=== PATIENT | male | born 1955 | race Caucasian/White ===

== ENCOUNTER → 2017-06-16 | Outpatient (CLI) | payer BC ==
--- NOTE | 2017-06-16 07:57 | US ---
EXAMINATION TYPE: US abdomen complete DATE OF EXAM: 06/16/2017 COMPARISON: NONE CLINICAL HISTORY: S39.011D strained muscle. EXAM MEASUREMENTS: Liver Length: 16.7 cm Gallbladder Wall: 0.3 cm CBD: 0.4 cm Spleen: 9.8 cm Right Kidney: 11.8 x 5.4 x 5.8 cm Left Kidney: 11.8 x 5.0 x 5.4 cm patient broke ribs about 5 weeks ago, is still very tender over this area. Pancreas: not visualized due to midline bowel gas Liver: wnl Gallbladder: No stones seen Evidence for sonographic Downs's sign: patient is very tender over gallbladder area but this is d ue to broken ribs. CBD: wnl Spleen: wnl Right Kidney: No hydronephrosis or masses seen Left Kidney: No hydronephrosis or masses seen Upper IVC: wnl Abd Aorta: wnl scanned superficially over area of pain, no definite abnormality noted. The liver is homogenous. The intrahepatic portion of the IVC and proximal abdominal aorta are within normal limits. There is no evidence of cholelithiasis. Common bile duct is unremarkable. The visu alized portions of the pancreas are homogenous. The spleen is unremarkable. Kidneys are symmetric a nd free of hydronephrosis. No renal lesions are seen. IMPRESSION: No significant abnormality identified at this time.
== END | disposition home or self-care (01) ==
LOC: RADUSWWP 06:52
PROVIDERS: ATTEND Family Medicine
DX: S39.011D Strain of muscle, fascia and tendon of abdomen, subsequent encounter (principal)
CPT/HCPCS: 76700

== ENCOUNTER → 2018-09-29 | Outpatient (CLI) | payer BC ==
--- NOTE | 2018-09-30 20:26 | CTL ---
EXAMINATION TYPE: CT Low Dose Lung DATE OF EXAM ORDERED: 09/29/2018 HISTORY: Long-term tobacco use. Lung cancer screening CT DLP: 115.[address] CTDI: 2.7 mGy Automated exposure control for dose reduction was used. SCREENING VISIT: Second study COMPARISON: Lung CT April 27, 2016 TECHNIQUE: Low dose computed tomography scan was performed through the chest at 1 mm thick sections a nd reconstructed images in the coronal plane at [address] DIAGNOSTIC QUALITY: Satisfactory FINDINGS: LUNG NODULES: None. No nodules greater than 4 mm. Incidental micronodule or 3 mm nodule in the lingul a on axial image 182 was present on prior image 36 series 3 is postinflammatory. LUNGS: COPD: Severity: Mild to moderate Fibrosis: Severity: None Lymph nodes: No greater than 1 cm noncalcified. Other findings: Redemonstration of calcified right hilar and subcarinal subcentimeter lymph nodes. BILATERAL PLEURAL SPACE: Effusion: None Calcification: None Thickening: Tiny focal thickening posterior lateral right lung apex is stable. Pneumothorax: None HEART: Heart Size: Normal Coronary calcification: Moderate redemonstrated Pericardial effusion: None OTHER FINDINGS: Upper abdomen: None Bony thorax: Mild multilevel spurring. Supraclavicular region: None Other: None IMPRESSION: No suspicious new or enlarging nodules. FOLLOW UP CT CHEST RECOMMENDATION: Annual low-dose lung screening CT CT LUNG RAD: Lung-Rad 2 Benign Appearance or Behavior
== END | disposition home or self-care (01) ==
LOC: RADCTMAIN 16:08
PROVIDERS: ATTEND Family Medicine
DX: Z12.2 Encounter for screening for malignant neoplasm of respiratory organs (principal); F17.210 Nicotine dependence, cigarettes, uncomplicated

== ENCOUNTER → 2019-01-29 | Outpatient (CLI) | payer BC ==
--- NOTE | 2019-01-29 12:09 | ECHOS ---
STRESS ECHOCARDIOGRAM INDICATIONS: Shortness of breath. MEDICATIONS: None. BASELINE HEART RATE: 64 BASELINE BLOOD PRESSURE: 152/91 MAXIMUM HEART RATE: 142 MAXIMUM BLOOD PRESSURE: 212/81 85% MPHR: 133 100% MPHR: 156 METS: 10.8 MAXIMUM STAGE REACHED: 142 TOTAL EXERCISE TIME: 9:30 CLINICAL INFORMATION: Baseline rhythm is sinus mechanism, rate of 64, left axis deviation, minor nonspecific ST-T wave changes. Baseline blood pressure 152/91 mmHg. Patient exercised on Sandor protocol for 9 minutes 30 seconds reaching a peak rate 142 beats per minute which is equal to 91% maximum predicted heart rate. Peak blood pressure 212/81 mmHg. Test was terminated secondary to fatigue. There were no chest pain. Electrocardiographic monitoring revealed no evidence of diagnostic ischemic ST deviation. FINDINGS: Baseline echocardiogram revealed normal wall thickening and motion. At peak exercise there was normal wall motion augmentation with no hypokinesis or dyskinesis. CONCLUSION: 1. Good exercise tolerance with normal electrocardiograph response to exercise. 2. Normal stress echocardiogram with no evidence of stress-induced ischemia. MMODL / IJN: [id number] /
== END | disposition home or self-care (01) ==
LOC: RADNMMAIN 09:54
PROVIDERS: ATTEND Family Medicine
DX: R06.00 Dyspnea, unspecified (principal)
CPT/HCPCS: 93351

== ENCOUNTER 2023-09-13 15:41 | Emergency (ER) | payer BC, MEDICARE ==
[2023-09-13] MEDS ORDERED: RX INFO: IV CONTRAST WAS GIVEN 1 EACH MISC MISCELLANE PRN (16:04)
--- NOTE | 2023-09-13 16:42 | ED ---
Extremity Problem HPI - General Source: patient, RN notes reviewed Mode of arrival: ambulatory Limitations: no limitations <Afsaneh King - Last Filed: 09/13/23 16:40> - General Source: RN notes reviewed <Geovanna Rowell - Last Filed: 09/13/23 23:06> - General Chief complaint: Extremity Problem,Nontraumatic Stated complaint: Needs CAT scan of L foot Time Seen by Provider: 09/13/23 15:58 - History of Present Illness Initial comments: Alexandr aparicio is a 68-year-old male with a history of tobacco abuse smoking 2 packs a day and atherosclerosis presents emergency department chief complaint of discoloration of his left third fourth and fifth digits that he noticed last night. He states that he experienced moderate to severe pain that awoke him fr om sleep due to this. Denies history of heart attack or stroke. Denies previous surgery to left foot or known trauma or injury to the affected toes. (Afsaneh King) 8-year-old male with history of heavy tobacco use and atherosclerosis presenting to the ER with chief complaint of discoloration to his left third, fourth, and fifth digits of left lower extremity. States he noticed this last night when he began to experience pain while he was sleeping in bed. He reports that his toes are purple and painful. He was sent today by his PCP for concern for ischemia. (Geovanna Rowell) - Related Data Home Medications Medication Instructions Recorded Confirmed No Known Home Medications 09/13/23 09/13/23 Allergies Allergy/AdvReac Type Severity Reaction Status Date / Time ketorolac [From Toradol] Allergy Rash/Hives Verified 09/13/23 19:58 Review of Systems ROS Other: All systems not noted in ROS Statement are negative. <Afsaneh King - Last Filed: 09/13/23 16:40> ROS Other: All systems not noted in ROS Statement are negative. <Geovanna Rowell - Last Filed: 09/13/23 23:06> ROS Statement: Those systems with pertinent positive or pertinent negative responses have been documented in the HPI. Past Medical History Past Medical History: Hyperlipidemia Past Surgical History: No Surgical Hx Reported Smoking Status: Current every day smoker Past Alcohol Use History: Daily Past Drug Use History: None Reported <Afsaneh King - Last Filed: 09/13/23 16:40> General Exam Limitations: no limitations <Afsaneh King - Last Filed: 09/13/23 16:40> General appearance: alert, in no apparent distress Respiratory exam: Present: normal lung sounds bilaterally. Absent: respiratory distress, wheezes, rales, rhonchi, stridor Cardiovascular Exam: Present: regular rate, normal rhythm, normal heart sounds. Absent: systolic murmur, diastolic murmur, rubs, gallop, clicks Left Lower Leg exam: Present: normal inspection, full ROM. Absent: tenderness, swelling Ankle exam: Present: normal inspection, full ROM. Absent: tenderness, swelling Foot/Toe exam: Present: full ROM, tenderness. Absent: normal inspection (Distal aspect of left third, fourth, and fifth digit of lower extremity are purple in color with mild tenderness to palpation. Cap refill less than 2 seconds, dorsalis pedis pulses present bilaterally. Full sensation and range of motion of digits.), swelling, laceration Neurovascular tendon exam: Present: no vascular compromise. Absent: pulse deficit, abnormal cap refill, sensory deficit <Geovanna Rowell - Last Filed: 09/13/23 23:06> - General Exam Comments Initial Comments: Visual Physical Exam Vital signs reviewed General: Well-appearing, nontoxic, no acute distress. Head: Normocephalic, atraumatic Eyes: PERRLA, EOMI ENT: Airway patent Chest: Nonlabored breathing Skin: No visual rash, normal skin tone Neuro: Alert and oriented 3 Musculoskeletal: No gross abnormalities (Afsaneh King) Course Vital Signs 09/13/23 15:48 Temperature 97.4 F L Pulse Rate 73 Respiratory 20 Rate Blood Pressure 173/86 O2 Sat by Pulse 96 Oximetry Medical Decision Making <Afsaneh King - Last Filed: 09/13/23 16:40> - Lab Data Result diagrams: 09/13/23 16:19 09/13/23 16:19 <Geovanna Rowell - Last Filed: 09/13/23 23:06> - Medical Decision Making I completed the quick note portion of this chart signed Afsaneh King PA-C (Afsaneh King) Was pt. sent in by a medical professional or institution (MICHELLE Santos, [employer] OPERATOR HELPER, urgent care, hospital, or correction...) When possible be specific @ -[No] Did you speak to anyone other than the patient for history (EMS, parent, family, police, friend...)? What history was obtained from this source @ -Patient's supplemented history Did you review nursing and triage notes (agree or disagree)? Why? @ -[I reviewed and agree with nursing and triage notes] Were old charts reviewed (outside hosp., previous admission, EMS record, old EKG, old radiological studies, urgent care reports/EKG's, correction records)? Report findings @ -[No old charts were reviewed] Differential Diagnosis (chest pain, altered mental status, abdominal pain women, abdominal pain men, vaginal bleeding, weakness, fever, dyspnea, syncope, headache, dizziness, GI bleed, back pain, seizure, CVA, palpatations, mental health, musculoskeletal)? @ -Differential Musculoskeletal Acute ischemia of limb, PAD, Mcgarry, gout, muscular strain, contusion, ligament sprain, fracture, arthritis, septic arthritis, bursitis, cellulitis, mu scle spasm, nerve compression, DVT, arterial occlusion, herpes zoster, electrolyte abnormality, tumor.... This is not meant to be in all inclusive list EKG interpreted by me (3pts min.). @ -None X-rays interpreted by me (1pt min.). @ -[None done] CT interpreted by me (1pt min.). @ -CT angio of left lower extremity revealed peroneal artery is diminutive and seen to just above ankle U/S interpreted by me (1pt. min.). @ -[None done] What testing was considered but not performed or refused? (CT, X-rays, U/S, labs)? Why? @ -[None] What meds were considered but not given or refused? Why? @ -[None] Did you discuss the management of the patient with other professionals (professionals i.e. DrErendira, PA, [employer] OPERATOR HELPER, lab, RT, psych nurse, outreach and education social worker, grants administrator, teacher, chief analytics officer, renal case manager)? Give summary @ -Case discussed with Dr. Downing's team and Dr. Darby from [facility] who accepted admission to medicine with vascular consult due to acute limb ischemia. Was smoking cessation discussed for >3mins.? @ -[No] Was critical care preformed (if so, how long)? @ -[No] Were there social determinants of health that impacted care today? How? (Homelessness, low income, unemployed, alcoholism, drug addiction, transportation, low edu. Level, literacy, decrease access to med. care, retirement, rehab)? @ -[No] Was there de-escalation of care discussed even if they declined (Discuss DNR or withdrawal of care, Hospice)? DNR status @ -[No] What co-morbidities impacted this encounter? (DM, HTN, Smoking, COPD, CAD, Cancer, CVA, ARF, Chemo, Hep., AIDS, mental health diagnosis, sleep apnea, morbid obesity)? @ -Tobacco smoking Was patient admitted / discharged? Hospital course, mention meds given and route , prescriptions, significant lab abnormalities, going to OR and other pertinent info. @ -Patient left AGAINST MEDICAL ADVICE. Patient was seen and evaluated for discoloration of 3rd, 4th, and 5th digits of left lower extremity x 1 day. pt is current tobacco smoker (2 packs daily). PE reveals purple discoloration and tenderness of distal aspect of left 3rd, 4th, and 5th digits. sensation and pulses intact. CT revealed peroneal artery is diminutive and seen to just above ankle. Lab work unremarkable. Case discussed with resident on Dr. Downing's team (vascular) and Dr. Darby from [facility]. Dr. Darby accepted admission with vascular consult to Dr. Downing. Patient decided to leave AGAINST MEDICAL ADVICE before admission orders were placed. Risks discussed in detail with patient of leaving AMA and patient shows understanding and chooses to leave AMA. Case discussed with Dr. Canchola Undiagnosed new problem with uncertain prognosis? @ -[No] Drug Therapy requiring intensive monitoring for toxicity (Heparin, Nitro, Insulin, Cardizem)? @ -[No] Were any procedures done? @ -[No] Diagnosis/symptom? @ -Acute left foot ischemia, peripheral artery disease Acute, or Chronic, or Acute on Chronic? @ -Acute Uncomplicated (without systemic symptoms) or Complicated (systemic symptoms)? @ -Uncomplicated Side effects of treatment? @ -[No] Exacerbation, Progression, or Severe Exacerbation? @ -[No] Poses a threat to life or bodily function? How? (Chest pain, [place], NH, pneumonia, PE, COPD, DKA, ARF, appy, cholecystitis, CVA, Diverticulitis, Homicidal, Suicidal, threat to staff... and all critical care pts) @ -Yes, ischemia to limb (Geovanna Rowell) - Lab Data Lab Results 09/13/23 09/13/23 09/13/23 Range/Units 16:19 16:19 16:19 WBC 7.9 (3.8-10.6) k/uL RBC 5.06 (4.30-5.90) m/uL Hgb 16.5 (13.0-17.5) gm/dL Hct 49.5 (39.0-53.0) % MCV 97.9 (80.0-100.0) fL MCH 32.7 (25.0-35.0) pg MCHC 33.4 (31.0-37.0) g/dL RDW 13.2 (11.5-15.5) % Plt Count 199 (150-450) k/uL MPV 7.8 Neutrophils % 63 % Lymphocytes % 23 % Monocytes % 6 % Eosinophils % 4 % Basophils % 2 % Neutrophils # 5.0 (1.3-7.7) k/uL Lymphocytes # 1.8 (1.0-4.8) k/uL Monocytes # 0.5 (0-1.0) k/uL Eosinophils # 0.3 (0-0.7) k/uL Basophils # 0.1 (0-0.2) k/uL PT 9.4 L (10.0-12.5) sec INR 0.8 (<1.2) APTT 20.7 L (22.0-30.0) sec Sodium 137 (137-145) mmol/L Potassium 5.2 H (3.5-5.1) mmol/L Chloride 107 (98-107) mmol/L Carbon Dioxide 25 (22-30) mmol/L Anion Gap 5 mmol/L BUN 19 (9-20) mg/dL Creatinine 0.97 (0.66-1.25) mg/dL Est GFR (CKD-EPI)AfAm >90 (>60 ml/min/1.73 sqM) Est GFR (CKD-EPI)NonAf 80 (>60 ml/min/1.73 sqM) Glucose 90 (74-99) mg/dL Plasma Lactic Acid Jovon (0.7-2.0) mmol/L Calcium 9.3 (8.4-10.2) mg/dL Total Bilirubin 0.6 (0.2-1.3) mg/dL AST 25 (17-59) U/L ALT 24 (4-49) U/L Alkaline Phosphatase 80 (38-126) U/L Total Protein 7.5 (6.3-8.2) g/dL Albumin 4.3 (3.5-5.0) g/dL 09/13/23 Range/Units 16:19 WBC (3.8-10.6) k/uL RBC (4.30-5.90) m/uL Hgb (13.0-17.5) gm/dL Hct (39.0-53.0) % MCV (80.0-100.0) fL MCH (25.0-35.0) pg MCHC (31.0-37.0) g/dL RDW (11.5-15.5) % Plt Count (150-450) k/uL MPV Neutrophils % % Lymphocytes % % Monocytes % % Eosinophils % % Basophils % % Neutrophils # (1.3-7.7) k/uL Lymphocytes # (1.0-4.8) k/uL Monocytes # (0-1.0) k/uL Eosinophils # (0-0.7) k/uL Basophils # (0-0.2) k/uL PT (10.0-12.5) sec INR (<1.2) APTT (22.0-30.0) sec Sodium (137-145) mmol/L Potassium (3.5-5.1) mmol/L Chloride (98-107) mmol/L Carbon Dioxide (22-30) mmol/L Anion Gap mmol/L BUN (9-20) mg/dL Creatinine (0.66-1.25) mg/dL Est GFR (CKD-EPI)AfAm (>60 ml/min/1.73 sqM) Est GFR (CKD-EPI)NonAf (>60 ml/min/1.73 sqM) Glucose (74-99) mg/dL Plasma Lactic Acid Jovon 1.0 (0.7-2.0) mmol/L Calcium (8.4-10.2) mg/dL Total Bilirubin (0.2-1.3) mg/dL AST (17-59) U/L ALT (4-49) U/L Alkaline Phosphatase (38-126) U/L Total Protein (6.3-8.2) g/dL Albumin (3.5-5.0) g/dL Disposition <Afsaneh King - Last Filed: 09/13/23 16:40> Time of Disposition: 19:54 <Geovanna Rowell - Last Filed: 09/13/23 23:06> Clinical Impression: Ischemic pain of left foot Disposition: LEFT AGAINST MEDICAL ADVICE Condition: Serious Referrals: Chris Brewer MD [Primary Care Provider] - 1-2 days
[2023-09-13 16:43] LABS: ALT 24 U/L (4-49); AST 25 U/L (17-59); African American GFR (CKD) >90 (>60 ml/min/1.73 sqM); Albumin 4.3 g/dL (3.5-5.0); Alkaline Phosphatase 80 U/L (38-126); Anion Gap 5 mmol/L; Blood Urea Nitrogen 19 mg/dL (9-20); Calcium 9.3 mg/dL (8.4-10.2); Carbon Dioxide 25 mmol/L (22-30); Chloride 107 mmol/L (98-107); Glucose 90 mg/dL (74-99); Non-African American GFR(CKD) 80 (>60 ml/min/1.73 sqM); Potassium 5.2 mmol/L (3.5-5.1); Sodium 137 mmol/L (137-145); Total Bilirubin 0.6 mg/dL (0.2-1.3); Total Protein 7.5 g/dL (6.3-8.2)
[2023-09-13 16:50] LABS: Basophils # (A) 0.1 k/uL (0-0.2); Basophils % (A) 2 %; Eosinophils # (A) 0.3 k/uL (0-0.7); Eosinophils % (A) 4 %; HCT 49.5 % (39.0-53.0); HGB 16.5 gm/dL (13.0-17.5); Lymphocytes # (A) 1.8 k/uL (1.0-4.8); Lymphocytes % (A) 23 %; MCH 32.7 pg (25.0-35.0); MCHC 33.4 g/dL (31.0-37.0); MCV 97.9 fL (80.0-100.0); Mean Platelet Volume 7.8; Monocytes # (A) 0.5 k/uL (0-1.0); Monocytes % (A) 6 %; Neutrophils % (A) 63 %; Platelet Count 199 k/uL (150-450); RBC 5.06 m/uL (4.30-5.90); RDW 13.2 % (11.5-15.5); WBC 7.9 k/uL (3.8-10.6)
[2023-09-13 16:54] LABS: INR 0.8 (<1.2); Prothrombin Time 9.4 sec (10.0-12.5)
[2023-09-13 17:00] LABS: Partial Thromboplastin Time 20.7 sec (22.0-30.0)
[2023-09-13 18:14] VITALS: BP 173/86; PULSE 73; RESP 20; TEMP 97.4
--- NOTE | 2023-09-13 18:30 | CT ---
EXAMINATION TYPE: CT angio lower extremity LT DATE OF EXAM: 09/13/2023 COMPARISON: None HISTORY: 68-year-old male with pain and discoloration of left toes TECHNIQUE: CT of the left lower extremity with IV Contrast, patient injected with 100 mL of Isovue 37 0. Scanning was performed from the mid calf through the toes. Coronal/sagittal reconstructions perfor med. 3-D reconstructions generated on a dedicated workstation. CT DLP: 184.7 mGycm Automated exposure control for dose reduction was used. FINDINGS: At the mid leg level, there is visualization of both the anterior and posterior tibial arteries. Susanna merry artery is somewhat diminished and is seen to just above the ankle. There is satisfactory two-ves arpit runoff noted. Generalized muscle atrophy involving the soleus. Os peroneum. Osteopenia. Ankle articulation grossly intact. Smooth delineation to the Achilles tendon. Subtalar joint is align ed. IMPRESSION: SCANNING FROM THE MID CALF DOWN THROUGH THE TOES. TWO-VESSEL RUNOFF VIA THE ANTERIOR AND POSTERIOR TI BIAL ARTERIES. THE PERONEAL ARTERY IS DIMINUTIVE AND SEEN TO JUST ABOVE THE ANKLE.
== END 2023-09-13 20:16 | disposition left against medical advice (07) ==
LOC: EC 15:41
DX: M79.672 Pain in left foot (principal); F17.200 Nicotine dependence, unspecified, uncomplicated; Z88.6 Allergy status to analgesic agent; Z53.29 Procedure and treatment not carried out because of patient's decision for other reasons
CPT/HCPCS: 36415; 80053; 83605; 85025; 85610; 85730; 73706; 99284; Q9967

== ENCOUNTER 2023-09-14 12:19 | Inpatient (IN) | payer MEDICARE ==
--- NOTE | 2023-09-14 13:05 | ED ---
Extremity Problem HPI - General Chief complaint: Extremity Problem,Nontraumatic Stated complaint: L foot issue Time Seen by Provider: 09/14/23 12:33 Source: patient, RN notes reviewed, old records reviewed Mode of arrival: ambulatory Limitations: no limitations - History of Present Illness Initial comments: This is a 68-year-old male to the ER today. He presents today for evaluation regards to recheck recheck of vascular arterial occlusion of the left lower extremity, patient does have discoloration of toes and severe pain especially when he is sleeping at night. Patient was in the ER yesterday with full evaluation including CT angio of his left lower extremity and was offered admission to the hospital he did have some family matters to take care of went home and presents to the ER again shereen WOODY Complaint: extremity pain, extremity swelling, cold extremity, other (DisColoration of left foot) Location: left, lower extremity, toe Severity scale (1-10): 7 Quality: sharp Consistency: constant Improves with: nothing Worsens with: weight bearing, walking Associated Symptoms: denies other symptoms - Related Data Previous Rx's Medication Instructions Recorded Apixaban [Eliquis] 5 mg PO BID #60 tab 09/15/23 Atorvastatin [Lipitor] 40 mg PO DAILY 90 Days #90 tab 09/15/23 Nicotine 21Mg/24Hr Patch [Habitrol] 1 patch TRANSDERM DAILY 30 Days 09/15/23 #30 patch Allergies Allergy/AdvReac Type Severity Reaction Status Date / Time ketorolac [From Toradol] Allergy Rash/Hives/Increased Verified 09/14/23 14:38 Heart Rate/Anxiety Review of Systems ROS Statement: Those systems with pertinent positive or pertinent negative responses have been documented in the HPI. ROS Other: All systems not noted in ROS Statement are negative. Past Medical History Past Medical History: Hyperlipidemia Past Surgical History: No Surgical Hx Reported Past Psychological History: No Psychological Hx Reported Smoking Status: Current every day smoker Past Alcohol Use History: Daily Past Drug Use History: None Reported General Exam Limitations: no limitations General appearance: alert, in no apparent distress Head exam: Present: atraumatic, normocephalic, normal inspection Eye exam: Present: normal appearance, PERRL, EOMI. Absent: scleral icterus, conjunctival injection, periorbital swelling ENT exam: Present: normal exam, mucous membranes moist Neck exam: Present: normal inspection. Absent: tenderness, meningismus, lymphadenopathy Respiratory exam: Present: normal lung sounds bilaterally. Absent: respiratory distress, wheezes, rales, rhonchi, stridor Cardiovascular Exam: Present: regular rate, normal rhythm, normal heart sounds. Absent: systolic murmur, diastolic murmur, rubs, gallop, clicks GI/Abdominal exam: Present: soft, normal bowel sounds. Absent: distended, te nderness, guarding, rebound, rigid Extremities exam: Present: normal inspection, full ROM, normal capillary refill. Absent: tenderness, pedal edema, joint swelling, calf tenderness Back exam: Present: normal inspection Neurological exam: Present: alert, oriented X3, CN II-XII intact Psychiatric exam: Present: normal affect, normal mood Skin exam: Present: warm, dry, intact, normal color. Absent: rash Course Vital Signs 09/14/23 09/14/23 09/14/23 12:26 16:24 20:30 Temperature 97.9 F 97.8 F Pulse Rate 86 66 83 Respiratory 18 18 18 Rate Blood Pressure 135/80 157/84 122/69 O2 Sat by Pulse 94 L 97 95 Oximetry - Reevaluation(s) Reevaluation #1: 09/14/23 15:34 Medical records reviewed Reevaluation #2: 09/14/23 15:34 Patient symptoms unchanged Reevaluation #3: 09/14/23 15:34 Patient informed of results and questions answered Reevaluation #4: Was pt. sent in by a medical professional or institution (, PA, CHART SNATCHER, urgent care, hospital, or prison...) When possible be specific @ -no Did you speak to anyone other than the patient for history (EMS, parent, family, police, friend...)? What history was obtained from this source @ -no Did you review nursing and triage notes (agree or disagree)? Why? @ -agree Are old charts reviewed (outside hosp., previous admission, EMS record, old EKG, old radiological studies, urgent care reports/EKG's, prison records)? Report findings @ -yes Differential Diagnosis (chest pain, altered mental status, abdominal pain women, abdominal pain men, vaginal bleeding, weakness, fever, dyspnea, syncope, headache, dizziness, GI bleed, back pain, seizure, CVA, palpatations, mental health, musculoskeletal)? @ -prior EKG interpreted by me (3pts min.). @ -yes X-rays interpreted by me (1pt min.). @ -no CT interpreted by me (1pt min.). @ -no U/S interpreted by me (1pt. min.). @ -no What testing was considered but not performed or refused? (CT, X-rays, U/S, labs)? Why? @ -none What meds were considered but not given or refused? Why? @ -none Did you discuss the management of the patient with other professionals (pro fessionals i.e. , PA, CHART SNATCHER, lab, RT, psych nurse, social science research assistant, locator, teacher, labor relations officer, protective services case worker)? Give summary @ -no Was smoking cessation discussed for >3mins.? @ -no Was critical care preformed (if so, how long)? @ -yes31 Were there social determinants of health that impacted care today? How? (Homelessness, low income, unemployed, alcoholism, drug addiction, transportation, low edu. Level, literacy, decrease access to med. care, fci, rehab)? @ -none Was there de-escalation of care discussed even if they declined (Discuss DNR or withdrawal of care, Hospice)? DNR status @ -no What co-morbidities impacted this encounter? (DM, HTN, Smoking, COPD, CAD, Cancer, CVA, ARF, Chemo, Hep., AIDS, mental health diagnosis, sleep apnea, morbid obesity)? @ -none Was patient admitted / discharged? Hospital course, mention meds given and route, prescriptions, significant lab abnormalities, going to OR and other pertinent info. @ - 68 male to be admitted for left lower extremity vascular occlusion, patient has ischemic pain of his foot, was in the hospital for admission just recently and discharged discharge secondary to family emergency, patient presents back for vascular consultation Admitted Undiagnosed new problem with uncertain prognosis? @ -no Drug Therapy requiring intensive monitoring for toxicity (Heparin, Nitro, Insulin, Cardizem)? @ -no Were any procedures done? @ -no Diagnosis/symptom? @ -Ischemic pain of the foot Acute, or Chronic, or Acute on Chronic? @ -Acute Uncomplicated (without systemic symptoms) or Complicated (systemic symptoms)? @ -Complicated Side effects of treatment? @ -no Exacerbation, Progression, or Severe Exacerbation? @ -exacerbation Poses a threat to life or bodily function? How? (Chest pain, USA, ID, pneumonia, PE, COPD, DKA, ARF, appy, cholecystitis, CVA, Diverticulitis, Homicidal, Suicidal, threat to staff... and all critical care pts) @ -yes with significant vascular injury and concern for for loss of limb loss - Consultations Consultation #1: Bayron with luis f who agrees to admit this patient Consultation #2: Popeye Downing who does agree to see this patient Medical Decision Making - Medical Decision Making 68 male to be admitted for left lower extremity vascular occlusion, patient has ischemic pain of his foot, was in the hospital for admission just recently and discharged discharge secondary to family emergency, patient presents back for vascular consultation - Lab Data Result diagrams: 09/15/23 10:47 09/15/23 10:47 - EKG Data -: EKG Interpreted by Me (EKG is sinus 71 NV 205 QRS 120 QTc 421) Critical Care Time Critical Care Time: Yes Total Critical Care Time: 31 Disposition Clinical Impression: Ischemic pain of left foot Disposition: ADMITTED IP TO THIS [facility] Condition: Stable Is patient prescribed a controlled substance at d/c from ED?: No Time of Disposition: 15:30
[2023-09-14] MEDS ORDERED: ONDANSETRON 4 MG/2 ML VIAL IVP PRN (15:31)
[2023-09-14] MEDS ORDERED: MORPHINE SULFATE 4 MG/ML SYRINGE IV PRN (15:31)
[2023-09-14] MEDS ORDERED: HEPARIN SODIUM 1,000 UN/ML (10ML VL) IV PRN ×2 (15:31→17:01)
[2023-09-14] MEDS ORDERED: NALOXONE 0.4 MG/ML 1 ML VIAL IV PRN (15:31)
[2023-09-14 16:06] LABS: Basophils # (A) 0.1 k/uL (0-0.2); Basophils % (A) 2 %; Eosinophils # (A) 0.3 k/uL (0-0.7); Eosinophils % (A) 5 %; HCT 49.3 % (39.0-53.0); HGB 16.1 gm/dL (13.0-17.5); Lymphocytes # (A) 1.9 k/uL (1.0-4.8); Lymphocytes % (A) 27 %; MCH 32.1 pg (25.0-35.0); MCHC 32.7 g/dL (31.0-37.0); MCV 98.4 fL (80.0-100.0); Mean Platelet Volume 7.4; Monocytes # (A) 0.4 k/uL (0-1.0); Monocytes % (A) 6 %; Neutrophils # (A) 4.2 k/uL (1.3-7.7); Neutrophils % (A) 59 %; Platelet Count 197 k/uL (150-450); RBC 5.01 m/uL (4.30-5.90); RDW 12.9 % (11.5-15.5); WBC 7.1 k/uL (3.8-10.6)
[2023-09-14] MEDS: HEPARIN SODIUM 1,000 UN/ML (10ML VL) IV ONE ×2 (16:11→17:24)
[2023-09-14] MEDS: SODIUM CHLORIDE 0.9% 1,000 ML IV STA (16:11)
[2023-09-14] MEDS: HEPARIN SOD,PORK IN 0.45% NACL 25,000 UNIT in 0.45% NACL 1 250ML.BAG IV SCH ×2 (16:13→17:15)
[2023-09-14] MEDS: MORPHINE SULFATE 4 MG/ML SYRINGE IV STA (16:15)
[2023-09-14] MEDS: SODIUM CHLORIDE 0.9% 1,000 ML IV SCH (16:15)
[2023-09-14 16:19] LABS: ALT 27 U/L (4-49); AST 30 U/L (17-59); African American GFR (CKD) >90 (>60 ml/min/1.73 sqM); Albumin 4.6 g/dL (3.5-5.0); Alkaline Phosphatase 85 U/L (38-126); Anion Gap 6 mmol/L; Blood Urea Nitrogen 15 mg/dL (9-20); Calcium 9.4 mg/dL (8.4-10.2); Carbon Dioxide 24 mmol/L (22-30); Chloride 107 mmol/L (98-107); Glucose 100 mg/dL (74-99); Magnesium 2.2 mg/dL (1.6-2.3); Non-African American GFR(CKD) >90 (>60 ml/min/1.73 sqM); Potassium 4.9 mmol/L (3.5-5.1); Sodium 137 mmol/L (137-145); Total Bilirubin 0.7 mg/dL (0.2-1.3); Total Protein 7.8 g/dL (6.3-8.2)
[2023-09-14 16:26] LABS: NT-Pro-B-Type Natriuretic Pept 45 pg/mL
[2023-09-14 16:40] LABS: INR 0.8 (<1.2); Prothrombin Time 9.6 sec (10.0-12.5)
[2023-09-14] MEDS: NICOTINE 21MG/24HR PATCH TRANSDERM SCH (17:14)
[2023-09-14] MEDS ORDERED: HYDROcodone/APAP 5-325MG 1 EACH TAB PO PRN (17:15)
[2023-09-14] MEDS ORDERED: ACETAMINOPHEN TAB 325 MG TAB PO PRN (17:15)
--- NOTE | 2023-09-14 17:20 | P.HPIM ---
History of Present Illness H&P Date: 09/14/23 History of Presenting Illness: Patient is a 68-year-old male with a past medical history of nicotine dependence, hypertension, hyperlipidemia, and reports of a previous cardiac sy ncope/convulsion in 2014. Reports he was previously on antihypertensive medication and statin, but states he stopped taking them and never had them refilled. He presented to the emergency department for discoloration of toes in his left foot. Patient initially presented to the hospital on 09/13/2023 in regards to discoloration of left toes and severe pain awakening him from sleep. He underwent evaluation and a CT angiogram was completed of left lower extremity which revealed the peroneal artery is diminutive and seen to just above the ankle concerning for potential vascular arterial occlusion. Patient was initially to be admitted to the hospital, however had family matters he had to take care of and return to the emergency department today for admission and further evaluation. Patient denies fevers, chills, headache, lightheadedness, dizziness, chest pain, palpitations, shortness of breath, or experiencing any numbness/tingling/weakness in his extremities. Upon returning to the hospital today, patient again underwent evaluation in the ER. CBC and CMP were unremarkable. Blood glucose 100. Troponin negative at less than 0.012 and proBNP of 45. Patient was started on high intensity heparin infusion and being admitted under our services with consultation to vascular surgery. Review of systems: Pertinent positives and negatives as discussed in HPI, a complete review of s ystems was performed and all other systems are negative. Physical exam: Vital signs reviewed and stable. General: Nontoxic, no distress and appears stated age. Derm: Skin warm and dry, normal coloration for ethnicity. Bluish discoloration of toes on left foot, worse on plantar surface of third fourth and fifth toes. Head: Atraumatic, normocephalic and symmetric. Eyes: EOMs intact, no lid lag, and anicteric sclera Mouth: no lip lesions, mucus membranes moist Cardiovascular: regular rate and rhythm with normal S1S2, no murmur, positive posterior tibial pulses bilaterally, and cap refill < 2 seconds. Lungs: Respirations even, regular, and unlabored on room air. Lungs CTA bilaterally, no rhonchi, no rales, no wheezing, and no accessory muscle usage. Abdominal: soft, nontender to palpation, no guarding, no appreciable organomegaly Ext: And sensation intact. No gross muscle atrophy, no edema, no contractures Neuro: Speech clear, face symmetrical and CN II-XII grossly intact with no noted focal neuro deficits Psych: Alert and oriented to person, place, time, and situation. Appropriate and pleasant affect. Assessment and Plan of Care: Blue discoloration of third, fourth, and fifth digits of left foot, rule out blue-toe syndrome vs arterial occlusion Nicotine Dependence Hypertension Hyperlipidemia -Patient started on high intensity heparin infusion at 18 units/kg/h -Consult placed to vascular surgery team and discussed plan of care with vascular surgeon and vascular surgery FOOD AND NUTRITION TEACHER placing order for CTA with runoff. -Patient started on aspirin 81 mg daily and atorvastatin 40 mg daily. -Neurovascular checks every 4 hours -Telemetry monitoring -Lipid profile with a.m. labs -Symptomatic care and pain management. -Recommend smoking cessation, order placed for nicotine patch 21 mg daily. Data and imaging reviewed: As stated above in HPI CODE STATUS: Full code DVT prophylaxis: Heparin Anticipated discharge date: Clinical course to determine Anticipated discharge place: Clinical course to determine Patient was seen independently by Nurse Practitioner. This document was prepared using [employer] dictation software. Please allow for errors in meat press operator while rare they do occur. Michoacano Sands NP rendered care for this patient independently, reviewed the findings and plan as documented in the note above. I did not physically speak with or examine the patient on this date. Past Medical History Past Medical History: Hyperlipidemia Past Surgical History: No Surgical Hx Reported Past Psychological History: No Psychological Hx Reported Smoking Status: Current every day smoker Past Alcohol Use History: Daily Past Drug Use History: None Reported Medications and Allergies Home Medications Medication Instructions Recorded Confirmed Type Apixaban [Eliquis] 5 mg PO BID #60 tab 09/15/23 Rx Atorvastatin [Lipitor] 40 mg PO DAILY 90 Days #90 tab 09/15/23 Rx Nicotine 21Mg/24Hr Patch [Habitrol] 1 patch TRANSDERM DAILY 30 Days 09/15/23 Rx #30 patch Allergies Allergy/AdvReac Type Severity Reaction Status Date / Time ketorolac [From Toradol] Allergy Rash/Hives/Increased Verified 09/14/23 14:38 Heart Rate/Anxiety Physical Exam Vitals: Vital Signs Temp Pulse Resp BP Pulse Ox 09/14/23 12:26 97.9 F 86 18 135/80 94 L Intake and Output 09/14/23 09/14/23 09/14/23 06:59 14:59 22:59 Other: Weight 98.883 kg Results CBC & Chem 7: 09/15/23 10:47 09/15/23 10:47
[2023-09-14] MEDS: ATORVASTATIN 40 MG TAB PO SCH (17:27)
[2023-09-14] MEDS: ASPIRIN 81 MG PO SCH (17:27)
--- NOTE | 2023-09-14 17:36 | P.GSCN ---
History of Present Illness Consult date: 09/14/23 Reason for Consult: Occlusion Requesting physician: Aaron Galdamez History of present illness: This is a pleasant 68-year-old male who had presented to the emergency department initially yesterday with complaints of pain in his toes at rest and having blue toes. He was seen in the emergency department yesterday he had a CTA of the left lower extremity which reported two-vessel runoff via the anterior and posterior tibial arteries. Peroneal artery is diminutive and seen to just above the ankle. Patient was advised to stay in the hospital for vascular consultation however he left AGAINST MEDICAL ADVICE. He returned back today with continued complaints of rest pain in the left toes and discoloration although he states improved. Past medical history is significant for nicotine dependence and hyperlipidemia. Does also appear that patient has admitted in the past to daily alcohol consumption. Patient states that he gets relief of the pain when he is walking. He states last night he was up every couple hours with pain in his toes. He currently denies any shortness of breath, chest pain, abdominal pain, nausea or vomiting. He denies any previous known vascular disease or Buerger's disease. Review of Systems A 14 point review systems was completed all pertinent positives and negatives as stated in the HPI. Past Medical History Past Medical History: Hyperlipidemia Past Surgical History: No Surgical Hx Reported Past Psychological History: No Psychological Hx Reported Smoking Status: Current every day smoker Past Alcohol Use History: Daily Past Drug Use History: None Reported Medications and Allergies Home Medications Medication Instructions Recorded Confirmed Type No Known Home Medications 09/13/23 09/14/23 History Allergies Allergy/AdvReac Type Severity Reaction Status Date / Time ketorolac [From Toradol] Allergy Rash/Hives/Increased Verified 09/14/23 14:38 Heart Rate/Anxiety Surgical - Exam Vital Signs Temp Pulse Resp BP Pulse Ox 97.9 F 86 18 135/80 94 L 09/14/23 12:26 09/14/23 12:26 09/14/23 12:26 09/14/23 12:09/14/23 12:26 General appearance: The patient is alert, oriented, appears in no acute distress. HET: Head is normocephalic and atraumatic. Pupils are equal and reactive. Neck: Supple. Heart: Regular. Lungs: Equal expansion, normal respiratory effort. Abdomen: Soft, nontender, nondistended. Extremities: Normal skin color and turgor. Palpable bilateral femoral, PT and DP pulses. Left foot great toe third fourth and fifth toe with some blue discoloration, with good capillary refill. Tender to touch. Neurological: No focal deficits. Strength and sensation are grossly intact. Results - Labs 09/14/23 15:52 09/14/23 15:52 Assessment and Plan Assessment: 1. Left foot with rest pain 2. Left blue toes, unknown etiology 3. Nicotine dependence 4. Hypertension 5. Hyperlipidemia Plan: 1. CT angiogram chest abdomen pelvis ordered 2. Recommend high intensity heparin infusion 3. Recommend smoking cessation 4. Pain medication as needed 5. Further recommendations forthcoming based on clinical course Thank you for this consultation, we will continue to follow The impression and plan of care has been dictated as directed. Dr. Downing I performed a history and examination of this patient, discussed the same with the dictator. I agree with the dictator's note ,documented as a scribe. Any additional findings or plans will be noted.
--- NOTE | 2023-09-14 21:00 | CT ---
EXAMINATION TYPE: CT angio tho/abd W Run Off CT DLP: 3095.4 mGycm, Automated exposure control for dose reduction was used. DATE OF EXAM: 09/14/2023 8:44 PM COMPARISON: CT angiogram lower extremity 09/13/2023. CLINICAL INDICATION:Male, 68 years old with history of left lower extremity blue toes; PHH, Left lowe r extremity blue toes. TECHNIQUE: Dissection protocol: Multiple axial CT images of the chest, abdomen, and pelvis were obtai martin prior and to the administration of IV contrast. 3-D reformats and maximum intensity projection fo rmat were performed on a separate workstation. Contrast used:100 cc mL of Isovue 370 with IV Contrast, Oral contrast used: FINDINGS: ARTERIAL VASCULATURE: The thoracic aorta is normal in course and caliber. There is no evidence of aor tic dissection, aneurysm or acute aortic injury. Great arch vessels patent and normal in course and c aliber. The abdominal aorta is of normal caliber. Moderate atherosclerotic disease is identified thro ughout its course. The origins of the abdominal aortic branches are patent. There is moderate to severe prescribed disease of the bilateral common iliac vessels, with suspected occlusion of the internal iliac (see arrow), with reconstitution of its branches more distally. There is severe stenosis of the bilateral external iliac vessels secondary to mixed atherosclerotic plaque . The common femoral, superficial, and deep femoral arteries are patent with scattered atheroscleroti c disease. The visualized portions of the popliteal artery as well as tibioperoneal trunk and trifurc ations are patent. PULMONARY ARTERIAL VASCULATURE: Normal caliber. No evidence of filling defect to suggest pulmonary em bolus. VENOUS SYSTEM: Unremarkable. Lungs/pleura: Centrilobular emphysematous changes are identified. Heart: Within normal limits. Mediastinum: No gross evidence of adenopathy. Lower Neck: No significant findings. Abdomen: Liver: Unremarkable. Gallbladder and Bile ducts: Unremarkable. Pancreas: Unremarkable. Spleen: Unremarkable. Adrenal glands: Unremarkable. Kidneys and Ureters: Unremarkable. No hydronephrosis. Bladder: Unremarkable. Reproductive: Unremarkable. Stomach and Bowel: Unremarkable. No evidence of bowel obstruction. Peritoneum: No evidence of pneumoperitoneum, free fluid, or adenopathy. Musculoskeletal: Mild multilevel degenerative changes of the thoracolumbar spine.. Lymph nodes: No evidence of lymphadenopathy. Abdominal wall/soft tissues: Unremarkable. IMPRESSION: 1. Normal appearance of the thoracic aorta. 2. Moderate atherosclerotic disease of the abdominal aorta with patent great vessels. 3. Atherosclerotic disease creating multifocal moderate to severe stenoses of the bilateral common il iac vessels. 4. 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 5. Scattered atherosclerotic disease with mild to moderate stenosis of the superficial femoral arteri es without occlusion. 6. Emphysematous changes of the lungs.
[2023-09-15 08:22] VITALS: RESP 18; TEMP 97.7
[2023-09-15] MEDS: PANTOPRAZOLE 40 MG/10 ML VIAL IVP SCH (08:27)
[2023-09-15] MEDS: APIXABAN 5 MG TAB PO SCH (11:18)
--- NOTE | 2023-09-15 11:25 | P.DS ---
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 Recommend smoking cessation, order placed for nicotine patch 21 mg daily. Hospital Course: Patient is a 68-year-old male with a past medical history of nicotine dependence, hypertension, hyperlipidemia, and reports of a previous cardiac syncope/convulsion in 2014. Reports he was previously on antihypertensive medication and statin, but states he stopped taking them and never had them refilled. He presented to the emergency department for discoloration of toes in his left foot. Patient initially presented to the hospital on 09/13/2023 in regards to discoloration of left toes and severe pain awakening him from sleep. He underwent evaluation and a CT angiogram was completed of left lower extremity which revealed the peroneal artery is diminutive and seen to just above the ankle concerning for potential vascular arterial occlusion. Patient was initially to be admitted to the hospital, however had family matters he had to take care of and returned to the emergency department 09/14/23 for admission and further evaluation. Upon returning to the hospital today, patient again under went evaluation in the ER. CBC and CMP were unremarkable. Blood glucose 100. Troponin negative at less than 0.012 and proBNP of 45. Patient was started on high intensity heparin infusion and being admitted under our services with consultation to vascular surgery. CTA with runoff showing occlusion of the proximal left internal iliac vessel, atherosclerotic disease creating multifocal moderate to severe stenosis of the bilateral common iliac vessels, scattered atherosclerotic disease with mild to moderate stenosis of the superficial femoral arteries without occlusion, and moderate atherosclerotic disease of the abdominal aorta with patent great vessels.Vascular Surgeon went to bedside and discussed options with patient regarding moving forward with angiogram and potential stenting versus continuing with medical therapy including full anticoagulation and close follow-up in their office. Patient declining surgical intervention at this time, feels that he has had improvement with antic oagulation. Vascular surgery team sent prescription for Eliquis and recommending patient be discharged home on Eliquis and follow-up in their office in 1 week. Medically, patient is stable for discharge at this time. In addition to Eliquis patient also being discharged home with atorvastatin as CT shows multiple areas of plaque buildup, lipid profile pending. Patient's vital signs stable at this time, he is free from any questions, concerns, or complaints. Patient instructed he will need to follow-up outpatient with his PCP in 1 to 2 days and with vascular surgery in 1 week. Physical exam: Vital signs reviewed and stable. General: Nontoxic, no distress and appears stated age. Derm: Skin warm and dry, normal coloration for ethnicity. Bluish discoloration of toes on left foot, worse on plantar surface of third fourth and fifth toes. Head: Atraumatic, normocephalic and symmetric. Eyes: EOMs intact, no lid lag, and anicteric sclera Mouth: no lip lesions, mucus membranes moist Cardiovascular: regular rate and rhythm with normal S1S2, no murmur, positive posterior tibial pulses bilaterally, and cap refill < 2 seconds. Lungs: Respirations even, regular, and unlabored on room air. Lungs CTA bilaterally, no rhonchi, no rales, no wheezing, and no accessory muscle usage. Abdominal: soft, nontender to palpation, no guarding, no appreciable organomegaly Ext: And sensation intact. No gross muscle atrophy, no edema, no contractures Neuro: Speech clear, face symmetrical and CN II-XII grossly intact with no noted focal neuro deficits Psych: Alert and oriented to person, place, time, and situation. Appropriate and pleasant affect. A total of 35 minutes of time were spent preparing this complex discharge summary. Pt was discharged on at 11:25 AM. Patient was seen independently by Nurse Practitioner. This document was prepared using [employer] dictation software. Please allow for errors in wire wrapping machine operator while rare they do occur. [place]oacano Sands NP rendered care for this patient independently, reviewed the findings and plan as documented in the note above. I did not physically speak with or examine the patient on this date. Patient Condition at Discharge: Stable Plan - Discharge Summary Discharge Rx Participant: No New Discharge Prescriptions: New Nicotine 21Mg/24Hr Patch [Habitrol] 1 patch TRANSDERM DAILY 30 Days #30 patch Apixaban [Eliquis] 5 mg PO BID #60 tab Atorvastatin [Lipitor] 40 mg PO DAILY 90 Days #90 tab Discharge Medication List Apixaban [Eliquis] 5 mg PO BID #60 tab 09/15/23 [Rx] Atorvastatin [Lipitor] 40 mg PO DAILY 90 Days #90 tab 09/15/23 [Rx] Nicotine 21Mg/24Hr Patch [Habitrol] 1 patch TRANSDERM DAILY 30 Days #30 patch 09/15/23 [Rx] Follow up Appointment(s)/Referral(s): Chris Brewer MD [Primary Care Provider] - 1-2 days Eneida Downing DO [STAFF PHYSICIAN] - 09/21/23 11:15 am (be there at 11am for paperwork) Patient Instructions/Handouts: Peripheral Vascular Disease (DC), Peripheral Artery Disease (DC) Activity/Diet/Wound Care/Special Instructions: Activity: As tolerated. Take breaks as needed. Diet: Heart healthy and carb consistent diet. Avoid salts, or foods with hidden salts such as canned or boxed foods and frozen dinners. Extra salt makes your heart work harder and traps the fluid in your body for longer. Special Instructions: Take all of your medications as directed and remember to keep all of your doctor's appointments and follow-up as needed. Thank you for allowing us to participate in your care, it was truly a pleasure having you for our patient!!! Discharge Disposition: HOME SELF-CARE
[2023-09-15 11:49] LABS: HCT 44.8 % (39.0-53.0); HGB 14.7 gm/dL (13.0-17.5); MCH 32.6 pg (25.0-35.0); MCHC 32.9 g/dL (31.0-37.0); MCV 99.2 fL (80.0-100.0); Mean Platelet Volume 8.1; Platelet Count 209 k/uL (150-450); RBC 4.52 m/uL (4.30-5.90); RDW 13.3 % (11.5-15.5); WBC 8.7 k/uL (3.8-10.6)
[2023-09-15 12:10] VITALS: BP 135/81; PULSE 71
[2023-09-15 12:10] LABS: African American GFR (CKD) >90 (>60 ml/min/1.73 sqM); Anion Gap 3 mmol/L; Blood Urea Nitrogen 13 mg/dL (9-20); Calcium 8.9 mg/dL (8.4-10.2); Carbon Dioxide 24 mmol/L (22-30); Chloride 110 mmol/L (98-107); Glucose 98 mg/dL (74-99); Non-African American GFR(CKD) >90 (>60 ml/min/1.73 sqM); Potassium 4.2 mmol/L (3.5-5.1); Sodium 137 mmol/L (137-145)
--- NOTE | 2023-09-15 12:58 | P.PN ---
Subjective Progress Note Date: 09/15/23 Patient seen and examined. Feels like his toes are feeling better and looking more improved. Denies any significant changes. Objective - Vital Signs Vital signs: Vital Signs Temp 97.7 F 09/15/23 11:05 Pulse 71 09/15/23 11:05 Resp 18 09/15/23 11:05 BP 135/81 09/15/23 11:05 Pulse Ox 94 L 09/15/23 11:05 FiO2 Intake & Output 09/14/23 09/15/23 09/15/23 18:59 06:59 18:59 Intake Total 240 232.574 463.827 Output Total 0 Balance 240 232.574 463.827 Weight 98.883 kg Intake: Intake, IV Titration 232.574 103.827 Amount Heparin Sod,Pork in 0.45% 232.574 103.827 NaCl 25,000 unit In 0.45 % NaCl 1 250ml.bag @ 18 UNITS/KG/HR 17.799 mls/hr IV .[id number] [facility] Rx#: [id number] Oral 240 360 Output: Gastric Drainage 0 Urine 0 Stool 0 Urine/Stool Mix 0 Emesis 0 Oral Regurgitation 0 Other 0 Other: Voiding Method Toilet # Voids 0 # Bowel Movements 0 - Exam General appearance: The patient is alert, oriented, appears in no acute dist ress. HET: Head is normocephalic and atraumatic. Pupils are equal and reactive. Neck: Supple. Heart: Regular. Lungs: Equal expansion, normal respiratory effort. Abdomen: Soft, nontender, nondistended. Extremities: Normal skin color and turgor. Palpable bilateral femoral, PT and DP pulses. Left foot third fourth and fifth toe with some blue discoloration, improved from previous, with good capillary refill. Tender to touch. Neurological: No focal deficits. Strength and sensation are grossly intact. 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 Relatively widely patent other vasculature otherwise. Occluded left internal iliac artery Tobacco abuse Plan: Discussed with patient that there is potentially issue with microvascular emboli to the left iliac however uncertain fully at this time. Discussed that our options would include going forward with angiogram and potential stenting. Discussed the risk of further embolic issue versus continuing with medical therapy, full anticoagulation and subsequent follow-up to see if he is having improvement and at that time in the decision of going forward with the angiogram with potential stenting. The patient at this time would like to go home. He is not overly interested in staying for continuation of anticoagulation. It is reasonable given findings he will continue anticoagulation and follow-up in the office in the near future. It is discussed that if he has worsening of his issues with further pain to return to the hospital. He seems understand the plan and is willing to proceed.
[2023-09-15 18:24] LABS: Chol/HDL Ratio 4.65 Ratio; LDL Cholesterol,Calculated 105.5 mg/dL (0.0-131.0)
== END 2023-09-15 12:29 | disposition home or self-care (01) | DRG 300 ==
LOC: EC 12:19 → 3SCARD 15:31
PROVIDERS: ADMIT Internal Medicine; ATTEND Internal Medicine
PROC: B41D1ZZ Fluoroscopy of Aorta and Bilateral Lower Extremity Arteries using Low Osmolar Contrast (ICD-10-PCS; principal; 2023-09-14)
DX: I74.5 Embolism and thrombosis of iliac artery (principal); I75.022 Atheroembolism of left lower extremity; Z53.29 Procedure and treatment not carried out because of patient's decision for other reasons; I70.292 Other atherosclerosis of native arteries of extremities, left leg; I70.201 Unspecified atherosclerosis of native arteries of extremities, right leg; I10 Essential (primary) hypertension; E78.5 Hyperlipidemia, unspecified; F17.210 Nicotine dependence, cigarettes, uncomplicated; Z71.6 Tobacco abuse counseling; Z79.899 Other long term (current) drug therapy; Z79.01 Long term (current) use of anticoagulants; Z88.1 Allergy status to other antibiotic agents
CPT/HCPCS: 71275; 75635; 80048; 80053; 80061; 83735; 83880; 84100; 84484; 85025; 85027; 85610; 85730; 93005; 96365; 96366; 99291